=== PATIENT | male | born 1980 | race American Indian/Alaskan Native ===

== ENCOUNTER 2016-12-18 13:38 | Emergency (ER) | payer SELFPAY ==
[2016-12-18 15:22] VITALS: BP 146/96
== END 2016-12-19 02:07 | disposition left against medical advice (07) ==
LOC: ED 13:38
DX: R22.0 Localized swelling, mass and lump, head (principal); Z53.21 Procedure and treatment not carried out due to patient leaving prior to being seen by health care provider